=== PATIENT | male | born 1965 | race African-American/Black ===

== ENCOUNTER 2024-12-23 06:06 | Inpatient (IN) | payer MEDICARE, MEDICAID ==
[~2024-12-23] VITALS: Ht 185.4 cm; Wt 885.0 kg
[~2024-12-23 06:06] MED LIST: BENA-8 PO; CLON0.2T PO; DOXE10CA2 PO; EFAV600T PO; GARL200T PO; GEMF600T90 PO; ISOS5TAB4 PO; OMEP20CA14 PO; SULF1TAB48 PO; [UNRECOGNIZED DRUG - OTHER] PO
[2024-12-23] MEDS ORDERED: IODIXANOL 320MG/ML 100 ML BOTTLE IV ONE ×2 (08:16→09:26)
[2024-12-23] MEDS ORDERED: HEPARIN 1000 UNITS/ML 10ML ONE ×2 (08:16→09:03)
[2024-12-23] MEDS ORDERED: LIDOCAINE HCL 1% 20ML VIAL ONE (08:16)
[2024-12-23] MEDS ORDERED: FENTANYL CITRATE/PF 50MCG/ML 2ML VIAL ONE (08:46)
[2024-12-23] MEDS ORDERED: MIDAZOLAM HCL 2 MG/2 ML VIAL ONE (08:46)
[2024-12-23] MEDS ORDERED: CLOPIDOGREL 75MG TABLET ONE (09:36)
[2024-12-23] MEDS ORDERED: ASPIRIN 325MG TABLET ONE (09:36)
[2024-12-23] MEDS ORDERED: ATROPINE SULFATE 1MG/10ML SYR IV PRN (10:00)
[2024-12-23] MEDS ORDERED: ONDANSETRON HCL 4MG/2ML INJ IV PRN (10:00)
[2024-12-23 10:30] VITALS: BP 135/84; PULSE 66; RESP 23; TEMP 36.6; O2SAT 100
[2024-12-23] MEDS: ACETAMINOPHEN 325MG TABLET PO PRN (11:14)
[2024-12-23 11:34] VITALS: BP 135/84; PULSE 66; RESP 23; TEMP 36.5848
[2024-12-23 12:00] VITALS: BP 140/86; PULSE 63; RESP 11; TEMP 36.3; O2SAT 100
[2024-12-23 16:00] VITALS: BP 132/86; PULSE 61; RESP 10; TEMP 36.9; O2SAT 100
[2024-12-23 20:00] VITALS: BP 132/75; PULSE 61; RESP 16; TEMP 36.4; O2SAT 100
[2024-12-24] VITALS: BP 140/83; PULSE 60; RESP 17; TEMP 36.4; O2SAT 100
[2024-12-24 04:00] VITALS: BP 144/87; PULSE 63; RESP 19; TEMP 36.7; O2SAT 100
[2024-12-24 08:00] VITALS: BP 149/91; PULSE 60; RESP 16; TEMP 36.6; O2SAT 100
[2024-12-24 08:29] LABS: CREATININE 1.0 mg/dL (0.6-1.3); UREA NITROGEN BLOOD 10 mg/dL (9-23)
[2024-12-24] MEDS: CLOPIDOGREL 75MG TABLET PO SCH (08:43)
[2024-12-24] MEDS: ASPIRIN 325MG TABLET PO SCH (08:43)
[2024-12-24] MEDS: POTASSIUM CHLORIDE 20MEQ TABLET SR PO NR (10:00)
[2024-12-24 11:47] VITALS: BP 164/94; PULSE 63; RESP 15; TEMP 98.2
[2024-12-24 11:48] VITALS: BP 164/95; PULSE 73; TEMP 36.7; O2SAT 99
[2024-12-24 12:00] VITALS: BP 148/95; PULSE 63; RESP 11; O2SAT 99
== END 2024-12-24 13:00 | disposition home or self-care (01) | DRG 321 ==
LOC: CCL 06:06 → 3WST 06:07
PROVIDERS: ADMIT Specialist; ATTEND Specialist
PROC: 4A023N7 Measurement of Cardiac Sampling and Pressure, Left Heart, Percutaneous Approach (ICD-10-PCS; principal; 2024-12-23)
PROC: B2111ZZ Fluoroscopy of Multiple Coronary Arteries using Low Osmolar Contrast (ICD-10-PCS; 2024-12-23)
PROC: 027236Z Dilation of Coronary Artery, Three Arteries with Three Drug-eluting Intraluminal Devices, Percutaneous Approach (ICD-10-PCS; 2024-12-23)
DX: I25.10 Atherosclerotic heart disease of native coronary artery without angina pectoris (principal); N18.6 End stage renal disease; I12.0 Hypertensive chronic kidney disease with stage 5 chronic kidney disease or end stage renal disease; I42.9 Cardiomyopathy, unspecified; E78.5 Hyperlipidemia, unspecified; Z79.02 Long term (current) use of antithrombotics/antiplatelets; Z79.82 Long term (current) use of aspirin; Z95.5 Presence of coronary angioplasty implant and graft; Z79.899 Other long term (current) drug therapy
CPT/HCPCS: 36415; 80048; 85347; 92928; 92929; 93005; 93458; C1769; C1874; C1887; C1893; J1644; J2003; J2250; J3010; Q9967